=== PATIENT | male | born 1945 | race Two or more races ===

== ENCOUNTER 2022-01-06 09:52 | Inpatient (IN) | payer MEDICARE, OTHER ==
[~2022-01-06] VITALS: Ht 167.6 cm; Wt 62.6 kg
--- NOTE | 2022-01-06 09:52 | NUR ---
PT BIB FAMILY, SENT BY DR PLUMMER FOR CARDIAC EVAL. PT IS AAOX4, NOT IN RESPIRATORY DISTRESS, HOOKED TO SENIOR PRINCIPAL PROCESS ENGINEER, KEPT RESTED AND COMFORTABLE. WILL CONTINUE TO MONITOR.
--- NOTE | 2022-01-06 10:30 | NUR ---
IV LINE ESTABLISHED BLOOD DRAWN AND SENT TO LAB.
--- NOTE | 2022-01-06 10:34 | NUR ---
PT SEEN AND EXAMINED BY .
--- NOTE | 2022-01-06 10:52 | NUR ---
COVID SPECIMEN OBTAINED AND SENT TO LAB.
[2022-01-06] MEDS ORDERED: ALIR75PE SQ (10:58)
[2022-01-06] MEDS ORDERED: FOLI0.4T6 PO (10:58)
[2022-01-06] MEDS ORDERED: DILT240C53 PO (10:58)
[2022-01-06] MEDS ORDERED: LOSA50TA39 PO (10:58)
[2022-01-06] MEDS ORDERED: APIX5TAB PO (10:58)
[2022-01-06] MEDS ORDERED: POTA10TA10 PO (10:58)
[2022-01-06] MEDS ORDERED: DILT120C51 PO (10:58)
[2022-01-06] MEDS ORDERED: METO25TA4 PO (10:58)
[2022-01-06] MEDS ORDERED: FURO20TA4 PO (10:58)
[2022-01-06] MEDS ORDERED: DRON400T6 PO (10:58)
[2022-01-06] MEDS ORDERED: IV NS 0.9% 1,000 ML BAG IV ONE (11:00)
[2022-01-06] MEDS ORDERED: AMIODARONE 150 MG in IV D5W 100 ML IV ONE ×2 (11:00→13:00)
[2022-01-06] MEDS ORDERED: AMIODARONE 450 MG in IV D5W 250 ML IV ONE (11:00)
[2022-01-06 11:25] LABS: BASOPHILS % (AUTO) 0.4 % (0.0-2.0); EOSINOPHILS % (AUTO) 0.4 % (0.0-6.0); HEMATOCRIT 55 % (39-51); HEMOGLOBIN 18.2 g/dL (13.5-17.5); LYMPHOCYTES # (AUTO) 1.5 K/uL (0.8-4.8); LYMPHOCYTES % (AUTO) 29.8 % (20.0-44.0); MEAN CORPUSCULAR HGB CONC 33 g/dl (31.0-36.0); MEAN CORPUSCULAR VOLUME 91 fL (80-96); MONOCYTES # (AUTO) 0.6 K/uL (0.1-1.30); MONOCYTES % (AUTO) 12.1 % (2.0-12.0); NEUTROPHILS # (AUTO) 2.9 K/uL (1.8-8.9); NEUTROPHILS % (AUTO) 57.3 % (43.0-81.0); PLATELET COUNT (AUTO) 164 K/uL (150-450); RED BLOOD CELL COUNT(AUTO) 6.09 MIL/uL (4.5-6.0)
[2022-01-06 11:38] LABS: CALCIUM, SERUM 8.9 mg/dL (8.5-10.1); CARBON DIOXIDE 25 mmol/L (21-32); CHLORIDE 104 mmol/L (98-107); CREATININE 1.9 mg/dL (0.6-1.3); GLUCOSE 104 mg/dL (74-106); POTASSIUM 4.2 mmol/L (3.5-5.1); SODIUM SERUM 140 mmol/L (136-145); UREA NITROGEN, BLOOD 21 mg/dL (7-18)
[2022-01-06 11:55] LABS: ALANINE AMINOTRANSFERASE 32 U/L (12-78); ALBUMIN 3.4 g/dL (3.4-5.0); ALKALINE PHOSPHATASE 81 U/L (46-116); ASPARTATE AMINOTRANSFERASE 36 U/L (15-37); BILIRUBIN,DIRECT 0.1 mg/dL (0.0-0.2); BILIRUBIN,TOTAL 0.3 mg/dL (0.2-1.0); TOTAL PROTEIN, SERUM 7.4 g/dL (6.4-8.2)
--- NOTE | 2022-01-06 12:50 | NUR ---
CALLED NURSING SUP REGARDING PT BED
[2022-01-06] MEDS ORDERED: AMIODARONE 450 MG in IV D5W 250 ML IV PRN (13:00)
--- NOTE | 2022-01-06 13:00 | NUR ---
AMIODARONE DBOLUS AND DRIP ALREADY STARTED.
--- NOTE | 2022-01-06 13:46 | NUR ---
CALLED NURSING SUP FOR UPDATE ON PT BED AND WAS NOTIFIED THAT THE WE ARE STILL WAITING FOR COVID RESULT.
[2022-01-06] MEDS ORDERED: Z GUARD REMEDY 4 OZ OINT TP PRN (14:30)
[2022-01-06] MEDS ORDERED: ACETAMINOPHEN 325 MG TABLET PO PRN (14:30)
[2022-01-06] MEDS ORDERED: IV 1/2NS 1000 ML 1,000 ML IV PRN (14:30)
[2022-01-06] MEDS ORDERED: MAGNESIUM HYDROXIDE 30 ML UDC PO PRN (14:30)
[2022-01-06] MEDS ORDERED: MAG HYDROX/AL HYDROX/SIMETH 30 ML UDC PO PRN (14:30)
--- NOTE | 2022-01-06 15:00 | NUR ---
GIVEN REPORT TO JESI WRIGHT FOR [facility].
--- NOTE | 2022-01-06 15:30 | NUR ---
RN NOTE RECEIVE REPORT FOR ED NURSE (KAYLIE) OVER THE PHONE. PATIENT IN STABLE CONDITION. ON ROOM AIR. RUNNING AMIODARONE DRIP AT 1MG/MIN (33.33ML/HR.) HEAT RATE AT 109
[2022-01-06] MEDS: APIXABAN 5 MG TABLET PO SCH (17:23)
--- NOTE | 2022-01-06 19:35 | NUR ---
RN OPENING NOTES, RECEIVED PT IN BED AWAKE, ALERT X4 AND VERBALLY RESPONSIVE. ON ROOM AIR, O2 SAT 94%. IV ACCESS ON LAC INTACT AND PATENT. NO S/S OF INFILTRATIONS. NO C/O PAIN OR DISCOMFORT. NO ACUTE DISTRESS. ON AMIODARONE DRIP 0.5 MG/MIN AND PT TOLERATED WELL. ISOLATION PRECAUTION IN PLACE. ALL SAFETY MEASURE IN PLACE. BED ON LOWEST POSITION AND LOCKED. HOB ELEVATED. PLACE CALL LIGHT WITHIN REACH. WILL CONTINUE TO MONITOR
[2022-01-06] MEDS: AMIODARONE 450 MG in IV D5W 241 ML IV PRN (19:46)
[2022-01-06 20:00] VITALS: BP 150/91
[2022-01-06 20:03] LABS: THYROID STIMULATING HORMONE 2.229 uIU/mL (0.358-3.74)
--- NOTE | 2022-01-06 20:03 | NUR ---
RN CLOSING NOTE REPORT WAS GIVEN TO FUR OPERATOR NURSE. PATIENT IN STABLE CONDITION WITH NO SIGN OF DISTRESS. AMIODARONE DRIP 0.5MG/MIN WAS STARTED WITH FUR OPERATOR NURSE. PROPER ISOLATION IN PLACE. ALL SAFETY MEASURE IN PLACE. BED ON LOWEST POSITION WITH HOB ELEVATED. CALL LIGHT WITHIN REACH.
--- NOTE | 2022-01-06 23:00 | NUR ---
RN NOTES: PT'S LAC IV ACCESS INFILTRATED. INSERTED NEW SALINE LOCKS ON RT HAND#20G, WILL START 0.45%NS AT 75CC/HR AND RAC#22G, RUNNING AMIODARONE 0.5MG/MIN. BOTH SIDES INTACT AND PATENT. NO S/S OF INFILTRATIONS. WILL CONTINUE TO MONITOR
[2022-01-07] VITALS: BP 126/88
[2022-01-07 04:00] VITALS: BP 126/92
--- NOTE | 2022-01-07 06:41 | NUR ---
RN CLOSING NOTES, PT IN BED AWAKE, ALERT X4 AND VERBALLY RESPONSIVE. ON O2 3L/MIN VIA N/C, O2 SAT 99%, PT TOLERATED WELL. IV ACCESS ON RAC#22G AND RT HAND#20G INTACT AND PATENT. NO S/S OF INFILTRATIONS.ON AMIODARONE DRIP 0.5 MG/MIN AND NS 0.45% RUNNING 75CC/HR . NO C/O PAIN OR DISCOMFORT. NO ACUTE DISTRESS. ALL DUE MEDS GIVEN ORDER. ISOLATION PRECAUTION IN PLACE. ALL SAFETY MEASURE IN PLACE. BED ON LOWEST POSITION AND LOCKED. HOB ELEVATED. PLACE CALL LIGHT WITHIN REACH. WILL ENDORSE TO MORNING SHIFT NURSE.
--- NOTE | 2022-01-07 07:15 | NUR ---
RN OPENING NOTES RECEIVED PATIENT IN BED AWAKE, ALERT/ ORIENTED X4 AND VERBALLY RESPONSIVE. ON O2 VIA NC AT 3LPM. BREATHING EVEN AND UNLABORED. NO SOB OR ANY ACUTE DISTRESS NOTED. PATIENT ON TELE MONITOR READING A-FIB UNCONTROLLED WITH HR OF 124. IV ACCESS ON RAC INFUSING AMIODARONE AT 0.5MG/MIN AND RIGHT HAND #20G INFUSING 0.45% NS @ 75 CC/HR. INTACT AND PATENT. NO S/S OF INFILTRATIONS. APPLICABLE ISOLATION PRECAUTION IN PLACE. ALL SAFETY MEASURE IN PLACE. BED ON LOWEST POSITION AND LOCKED. HOB ELEVATED. PLACE CALL LIGHT WITHIN REACH. WILL CONTINUE TO MONITOR PATIENT ACCORDINGLY.
[2022-01-07] MEDS ORDERED: PANTOPRAZOLE 40 MG TABLET.DR PO SCH (07:30)
[2022-01-07 07:52] LABS: BASOPHILS % (AUTO) 0.3 % (0.0-2.0); EOSINOPHILS % (AUTO) 0.2 % (0.0-6.0); HEMATOCRIT 49 % (39-51); HEMOGLOBIN 16.3 g/dL (13.5-17.5); LYMPHOCYTES # (AUTO) 1.1 K/uL (0.8-4.8); LYMPHOCYTES % (AUTO) 20.2 % (20.0-44.0); MEAN CORPUSCULAR HGB CONC 33 g/dl (31.0-36.0); MEAN CORPUSCULAR VOLUME 91 fL (80-96); MONOCYTES # (AUTO) 0.5 K/uL (0.1-1.30); MONOCYTES % (AUTO) 8.4 % (2.0-12.0); NEUTROPHILS # (AUTO) 3.8 K/uL (1.8-8.9); NEUTROPHILS % (AUTO) 70.9 % (43.0-81.0); PLATELET COUNT (AUTO) 142 K/uL (150-450); RED BLOOD CELL COUNT(AUTO) 5.43 MIL/uL (4.5-6.0); WHITE BLOOD COUNT (AUTO) 5.3 K/uL (4.3-11.0)
[2022-01-07 08:00] VITALS: BP 131/91
[2022-01-07] MEDS: APIXABAN 5 MG TABLET PO SCH (08:17)
[2022-01-07 10:20] VITALS: BP 130/78
[2022-01-07] MEDS: AMIODARONE 450 MG in IV D5W 241 ML IV PRN (10:20)
[2022-01-07 10:50] LABS: ALBUMIN 2.7 g/dL (3.4-5.0); BILIRUBIN,TOTAL 0.4 mg/dL (0.2-1.0); CALCIUM, SERUM 7.6 mg/dL (8.5-10.1); CREATININE 1.3 mg/dL (0.6-1.3); MAGNESIUM 2.1 mg/dL (1.8-2.4); TOTAL PROTEIN, SERUM 6.3 g/dL (6.4-8.2)
--- NOTE | 2022-01-07 13:00 | NUR ---
RN NOTES PATIENT DISCHARGED TO HOME. PATIENT AT STABLE CONDITION AT THE TIME. BREATHING EVEN AND UNLABORED NO SOB OR ANY ACUTE DISTRESS NOTED AT THE TIME. ON ROOM AIR SATTING AT 94%, TOLERATING WELL. IV ACCESS LIVES REMOVED. NO BLEEDING NOTED ON SITES. ALL BELONGINGS ACCOUNTED FOR AND GIVEN TO PATIENT AND BELONGINGS LIST SIGNED. DISCHARGED INSTRUCTIONS SIGNED AND GIVEN TO PATIENT. ALL DUE MEDS GIVEN ORDERED. ALL NEEDS ATTENDED. PATIENT WHEELED OUT OF HOSPITAL. PATIENT LEFT HOSPITAL VIA PRIVATE CAR WITH DAUGHTER.
== END 2022-01-07 13:15 | disposition home or self-care (01) | DRG 280 ==
LOC: ER 09:55 → TRANSITION 13:05 → TELE1 15:01 → TELE-TD 15:13
PROVIDERS: ADMIT Nurse Practitioner Family; ATTEND Nurse Practitioner Family
DX: I48.0 Paroxysmal atrial fibrillation (principal); N17.0 Acute kidney failure with tubular necrosis; I21.A1 Myocardial infarction type 2; U07.1 COVID-19; E86.0 Dehydration; Z79.01 Long term (current) use of anticoagulants; Z87.891 Personal history of nicotine dependence; I10 Essential (primary) hypertension; D58.2 Other hemoglobinopathies
CPT/HCPCS: 36415; 71045-TC; 80048-TC; 80053-TC; 80061-TC; 80076-TC; 83735-TC; 83880; 84100-TC; 84439-TC; 84443-TC; 84484-TC; 85025-TC; 85730-TC; 87081-TC; 93307-TC; G0378; J0282; J3490; J7060